=== PATIENT | female | born 1995 | race Caucasian/White ===

== ENCOUNTER 2017-01-04 22:19 | Emergency (ER) | payer SELFPAY ==
[~2017-01-04] VITALS: Ht 165.1 cm; Wt 62.3 kg
[2017-01-04] MEDS ORDERED: POVIDONE-IODINE 10% 15 ML SOLUTION UD TP ONE (23:00)
[2017-01-04] MEDS ORDERED: IBUPROFEN 600 MG TABLET PO ONE (23:00)
[2017-01-04] MEDS ORDERED: LIDOCAINE HCL BUFFERED 1% 20 ML VIAL INJ ONE (23:15)
[2017-01-04] MEDS ORDERED: PERTUSS(ACELL),DIPH,TET VAC/PF 0.5 ML VIAL IM ONE (23:45)
[2017-01-04] MEDS ORDERED: BACITRACIN 0.9 GM PACKET OINTMENT TP ONE ×2 (23:45)
[2017-01-04 23:54] VITALS: BP 132/62
== END 2017-01-05 00:02 | disposition home or self-care (01) ==
LOC: EMS 22:22
DX: S61.215A Laceration without foreign body of left ring finger without damage to nail, initial encounter (principal); F12.90 Cannabis use, unspecified, uncomplicated; W25.XXXA Contact with sharp glass, initial encounter; Y93.89 Activity, other specified; Y92.89 Other specified places as the place of occurrence of the external cause; Y99.8 Other external cause status
CPT/HCPCS: 12002; 90471; 90715; 99284; J3490

== ENCOUNTER 2017-01-13 01:52 | Emergency (ER) | payer SELFPAY ==
[~2017-01-13] VITALS: Ht 165.1 cm; Wt 60.0 kg
[2017-01-13 03:55] VITALS: BP 124/5
== END 2017-01-13 04:28 | disposition home or self-care (01) ==
LOC: EMS 01:53
DX: Z48.02 Encounter for removal of sutures (principal); F41.9 Anxiety disorder, unspecified; F32.9 Major depressive disorder, single episode, unspecified; F12.10 Cannabis abuse, uncomplicated
CPT/HCPCS: 99282